=== PATIENT | female | born 1955 | race Caucasian/White ===

== ENCOUNTER 2017-03-01 11:21 | Day surgery (SDC) | payer OTHER ==
[~2017-03-01] VITALS: Ht 160 cm; Wt 130.0 kg
--- NOTE | 2017-03-01 08:10 | PCM.HPANE ---
Patient Data Surgeon Admitting Provider: Attending Provider:Shabbir Magaña MD Primary Care Physician:Akilah Orlando DO Other Provider:Ophelia Encarnacion Anesthesia Reason for Visit Post-Menopausal Bleeding Ht/WT & BMI Height (Feet): 5 Height (Inches): 3 Weight (Kilograms): 129.7 Body Mass Index 50.00 Allergies Coded Allergies: Penicillins (Verified Allergy, Unknown, 03/08/15) Past Anesthesia History Anesthesia History: Denies:: Abnormal Airway, Anesthesia Reactions (nausea after propofol, hard to rouse ), Difficult Intubation, Fam Anesthesia Reaction, Malignant Hyperthermia Diabetes History Hx Diabetes?: Yes (Hgb A1c- 5.7 last done 01/2016) Type of Diabetes: Type II Glycemic Control: Oral Medication MRSA MRSA: No Medications Hypertension Medication: No Home Meds Incl Beta Carlos: No Reported Medications Diclofenac Gel (Voltaren Gel)100 Gm Tube1 Applic TOPICAL 4xd PRN For Pain #1 TUBE 02/28/17 Levothyroxine (Synthroid)25 Mcg Slezcu37 Mcg PO DAILY Ref 0 02/28/17 Multivitamin (Multi Vitamin Daily)1 Each Tablet1 Each PO DAILY 30 Days Ref 0 02/28/17 Metformin 500 Mg [id number] Mg PO DAILY Ref 0 02/28/17 Discontinued Reported Medications Ca Cmb 1/Vit D3/B-6/FA/B12/Av (Vitamin D3-Aloe 1,000 Unit Tab)1 Each Tablet1 Each PO DAILY PRN in the winter 06/27/15 Levothyroxine (Synthroid)25 Mcg Fhfarz55 Mcg PO DAILY 30 Days Ref 0 03/08/15 Carisoprodol (Soma)350 Mg Konnmp042 Mg PO HS PRN For Pain 03/08/15 Multivitamin (Multivitamins)1 Each Capsule1 Each PO DAILY 03/08/15 Liothyronine Sodium (Cytomel)25 Mcg Qlvjxs45 Mcg PO DAILY 03/08/15 Discontinued Scripts Alprazolam 0.25 Mg Tablet0.25 Mg PO TID PRN For Anxiety #14 TABLET Ref 0 Prov:Eliceo Monaco MD 07/05/15 Budesonide (Pulmicort Flexhaler)60 Puff/Inh Inhaler1 Puff INH BID #1 INHALER Ref 0 Prov:Eliceo Monaco MD 07/05/15 Prednisone (PredniSONE)10 Mg Owypwh67 Mg PO DAILY #30 TABLET Ref 0 60 mg ax 1 day, 40 mg x 2 days, 30 mg x 2 days, 20 mg x 2 days, 10 mg x 2 days, then stop Prov:Eliceo Monaco MD 07/05/15 Epinephrine 0.3 Mg/0.3 Ml Auto.injct0.3 Mg IJ DIRECTED PRN For Anaphyllaxis # 1 PENINJ Ref 2 Prov:Eliceo Monaco MD 07/05/15 Amlodipine 5 Mg Vpiast94 Mg PO DAILY #14 TABLET Prov:Eliceo Monaco MD 07/05/15 History History of ENT Problems?: No HEENT History: Denies:: Abnormal Airway Cataracts Difficult Intubation Dysphagia Glaucoma Hearing Problem Sinus Problem TMJ Denture Type: None Teeth Condition: Within Normal Limits Hx of Heart Problems?: No Cardiovascular History: Positive for:: Irregular Heartbeat (PVCs, rapid heart rate while on steroids ) Denies:: AICD Cardiac Surgery Chest Pain Congestive Heart Failure Coronary Artery Disease Edema Heart Murmur Hypertension Pacemaker Peripheral Vascular Rheumatic Fever Thrombophlebitis Valvular Heart Disease Hx of Respiratory Problem?: Yes Respiratory History: Positive for:: Dyspnea (hx of reactive airway, bronchospasm x 2 in 2015, hospitalized) Denies:: Asthma COPD Chest Surgery Emphysema Hemoptysis Oxygen Administration Pneumonia Pulmonary Embolism Tuberculosis Use of C-PAP Machine Hx Neurologic Problems?: Yes Neurological History: Positive for:: Dizziness Denies:: Alzheimer's Disease CVA Dementia Headaches Multiple Sclerosis Parkinson's Disease Seizures Other Neurological Pertinent: traumatic brain injury 2002- no resulting outcomes Hx of GI Problems?: No Gastrointestinal History: Denies:: Cirrhosis Diverticulitis Gall Bladder Disease Gastroesphageal Reflux Gastrointestinal Bleeding Heartburn Hepatitis Hiatal Hernia Liver Disease Rectal Bleeding Hx of Problems?: No Genitourinary History: Denies:: HX of Hemodialysis Kidney Stones Urinary Tract Infection HX of Peritoneal Dialysis: No Female Hx: Denies:: Currently Endometriosis Pelvic Inflammatory Problems with Breasts? Skin History: Denies:: History Skin Disorders? Pressure Ulcers Hx Musculoskeletal Problems?: Yes Musculoskeletal History: Positive for:: Musculoskeletal Trauma (sore hips, knees) Denies:: Back Injury Fibromyalgia Joint Replacement Osteoarthritis Rheumatoid Arthritis Systemic Lupus Hx of Psycho/Social Problems?: Yes Psycho Social History: Positive for:: Hx Depression Denies:: Anxiety Bipolar Disorder Suicide Attempt Hx Surgeries?: Yes ( x3 AND RUPTURED CORNUAL ) Hx Any Other Health Problems?: Yes Other History: Positive for:: Thyroid Disease (hypothyroidism) Denies:: Cancer Hospitalization History Blood Transfusions: Positive for:: Accept Blood Products? Denies:: Blood Transfuse Reaction Blood Transfusions (possible when treated for rupt pg) Hx Diabetes: Yes (Hgb A1c- 5.7 last done 01/2016) Hx Alcohol Use: YesAlcoholic Drinks Per Day: two glasses monthlyHx Substance Use: No Smoking Status: Never Smoker Have You Smoked inLast 12 mo: No Stop/Bang Treated for Sleep Apnea?: No Do You Have a CPAP Machine?: No S-Snoring: Do You Snore Loudly: No T-Tired: feel tired, fatigued: No O-Obsered: Observed not breath: No P-Blood Pressure: treated: No B- Body Mass Index > 35 kg/m2: Yes A- Age over 50: Yes N- Neck Large Circumference: Yes G- Gender Male: No JEWEL Total Score: 3 JEWEL Risk Assessment: High Risk, =/>3 Yes JEWEL Category 2: Yes Risk Assessment Category Category 1A: Patient has history of documented sleep apnea, and HAS NOT received any narcotic, sedative or anesthesia administration during this stay. Category 1B: Patient has history of documented sleep apnea, and HAS received any narcotic , sedative or anesthesia administration during this stay Category 2: Patient has SUSPECTED Obstructive Sleep Apnea, and HAS received any narcotic , sedative or anesthesia administration during this stay. Category 3: Patient has SUSPECTED Obstructive Sleep Apnea and HAS NOT received narcotic, sedative or anesthesia administration during this stay. Category 4: Outpatient in Procedural Areas with known sleep apnea or who screen positive for High Risk via the STOP/BANG questionnaire. Exam Exam General Appearance: Alert, Oriented X3, Cooperative, No Acute Distress HEENT/AIRWAY: MP 2 Lungs: Clear to Auscultation, Normal Air Movement Heart: Exam Unremarkable, Regular Rate/Rhythm, No Murmurs/Rubs/Gallops Plan Impression Patient chart reviewed, patient interviewed and anesthestic plan with risks, benefits, and alternatives discussed, and informed consent obtained. ASA Physical Status: ASA3 Severe Disease (morbid obesity, DM) Anesthetic Plan: GA Bene/Risks/Altern/Consents: Yes HP Complete Prior to Induction: Yes Anthony Gallardo MD Mar 01, 2017 08:10
[~2017-03-01 11:21] MED LIST: DICL100G8 TOPICAL; Dexamethasone 4 mg/mL Inj IVPUSH PRN; EPHEDrine Sulfate 50 mg/mL Inj IVPUSH PRN; HYDROmorphone 1 mg/mL Inj IVPUSH PRN; LEVO25TA2 PO; Lactated Ringer's 1,000 ML IV SCH; Lactated Ringer's 500 ML IV PRN; METF500T4 PO; MULT-1018 PO; MetoCLOpramide 5 mg/mL 2 mL Inj IVPUSH PRN; Ondansetron 2 mg/mL 2 mL Inj IVPUSH PRN; Phenylephrine 10,000 mCg/mL Inj IVPUSH PRN; fentaNYL-PF 50 mCg/mL 2 mL Inj IVPUSH PRN
[2017-03-01] MEDS ORDERED: Remifentanil 1 mg/3 mL Inj ONE (11:22)
[2017-03-01] MEDS ORDERED: Propofol 10,000 mCg/mL 20 mL Inj ONE (11:22)
[2017-03-01] MEDS ORDERED: Ondansetron 2 mg/mL 2 mL Inj ONE (11:22)
[2017-03-01] MEDS ORDERED: Ketamine 10 mg/mL 20 mL Inj ONE (11:22)
[2017-03-01] MEDS ORDERED: Rocuronium 10 mg/mL 5 mL Inj ONE (11:22)
[2017-03-01 11:56] VITALS: BP 172/88; PULSE 64; RESP 18; O2SAT 96
[2017-03-01] MEDS ORDERED: Lactated Ringer's 1,000 ML IV ONE (14:22)
[2017-03-01 14:45] VITALS: BP 166/88; PULSE 81; RESP 16; O2SAT 96
[2017-03-01] MEDS ORDERED: oxyCODONE-Acetamin 5-325 mg Tablet PO PRN (14:55)
[2017-03-01] MEDS ORDERED: MetoCLOpramide 5 mg/mL 2 mL Inj IVPUSH PRN (14:55)
[2017-03-01] MEDS ORDERED: Ondansetron 2 mg/mL 2 mL Inj IVPUSH PRN (14:55)
[2017-03-01] MEDS ORDERED: diphenhydrAMINE 25 mg Capsule PO PRN (14:55)
[2017-03-01] MEDS ORDERED: HYDROmorphone 1 mg/mL Inj IVPUSH PRN (14:55)
--- NOTE | 2017-03-01 14:58 | PCM.DIGYN ---
Surgical Discharge Instruction Dates of Hospitalization Date of Hospital Admission 03/01/2017 Providers Admitting Physician: Primary Care Physician: Akilah Orlando DO Attending Physician: Shabbir Magaña MD Diagnosis at Time of Discharge Diagnosis at time of discharge Postmenopausal bleeding. Endometrial mass Problems: Diet Discharge Diet: No restrictions Activity Discharge Activity-General: Try not to overdue, Be up and about, Other ( nothing per vagina for 2 weeks) Dressing and Incisional Care Hygiene: NO bathtub, hot tub or whirlpool (unitl vaginal bleeding and discharge resolve.) Follow Up Plan Follow-up appointment: Weeks (2) Call your provider for: Fever, Chills, Shortness of breath, Heavy vaginal bleeding, Increasing pain Shabbir Magaña MD Mar 01, 2017 14:58
[2017-03-01 15:30] VITALS: BP 114/72; PULSE 68; RESP 14; O2SAT 98
--- NOTE | 2017-03-02 00:26 | OP ---
[address] [address] OPERATIVE REPORT PATIENT: ALEXANDER OTOOLE : 1955 MR#: [id number] ADMIT: 03/01/2017 JOB ID: [id number] DATE OF SURGERY: PREOPERATIVE DIAGNOSIS(ES): 1. Postmenopausal bleeding. 2. Endometrial polyp. POSTOPERATIVE DIAGNOSIS(ES): 1. Postmenopausal bleeding. 2. Endometrial polyp. PROCEDURE PERFORMED: Diagnostic hysteroscopy with MyoSure resection of endometrial polyp/mass. SURGEON: Shabbir Magaña M.D. ANESTHESIA: MAC. ESTIMATED BLOOD LOSS: 10 mL. COMPLICATIONS: None. PATHOLOGY SENT: MyoSure endometrial curettings. FINDINGS AT TIME OF SURGERY: Normal-appearing vagina and cervix. Hysteroscopic findings showing a topographic endometrial mass attached to the posterior aspect of the uterine wall. There appeared to be some calcifications and large vessels within this mass. The cornual regions were normal in appearance and atrophic. PROCEDURE: The patient was taken to the operating room where her general MAC anesthesia was obtained without difficulty. She was placed in the lithotomy position in the [facility] and prepared and draped in normal sterile fashion. A bivalve speculum was inserted into the patient's vagina and the cervix was identified, grasped with single-tooth tenaculum and dilated using Hegar cervical dilators to a #8. A MyoSure hysteroscope was then inserted. The above noted findings were appreciated. The MyoSure device was then inserted and the endometrial mass was resected. The myosure device was removed and sharp curette was used to palpate the posterior wall of the uterus, was felt to be gritty. All instruments were then removed from the patient's vagina. Pressure was applied to the uterus and cervix for hemostasis. Good hemostasis was assured. All lap, instrument, and needle counts correct x2 at the end of the procedure. The patient was taken to the recovery room in good condition. [facility]OSPITALHumza
--- NOTE | 2017-03-04 14:42 | PATH ---
SURGICAL PATHOLOGY Attending Physician:Shabbir Magaña, CASE STATUS: Signed Out PATIENT NAME: ALEXANDER OTOOLE PID: [id number] : 1955 DATE COLLECTED:03/01/2017 00:00 SPECIMEN: Endometrium, Curettage CLINICAL HISTORY: POSTMENOPAUSAL BLEEDING 1). MYOSURE ENDOMETRIAL CURETTINGS FINAL DIAGNOSIS: 1.ENDOMETRIAL CURETTINGS: ENDOMETRIAL ADENOCARCINOMA, ENDOMETRIOID TYPE, FIGO GRADE 1 WITH SOME FRAGMENTS SUSPICIOUS FOR POSSIBLE MYOMETRIAL INVASION. [id number] NOTE: As part of a routine quality improvement coordinator, Dr. Radu Carrera has also reviewed this case and agrees with the diagnosis. The results of this evaluation are telephoned to the office of Dr. Angelic Magaña at 1:20 pm on 03/04/17. GROSS DESCRIPTION: The specimen is received in one formalin filled container labeled with the patient's name, sublabeled "myosure endometrial curettings" and consists of multiple portions of light watts tissue which aggregate to 4.0 x 3.0 x 2.0 CM. Rim Fire Charger Operator sections are submitted in 6 cassettes. 03/02/2017 DAC MICRO DESCRIPTION: See diagnosis. ICD-9 CODES: CPT CODES: 1: 58856 Electronically Signed Out Mariusz Zaldivar MD [facility] [address], [place] [address] Technical component performed at [facility], [address] [place] [address] Ave[address], [place], [address]
--- NOTE | 2017-03-05 07:30 | PCM.ANEP1 ---
Post Anesthesia PACU Phase 1 Assessment Anesthetic Administered: GA Level of Alertness: Awake, talking VELAZQUEZ's with Equal Strength: Yes Pain: No Nausea or Vomiting: No CV Function & Hydration Stable: Yes Airway Device: Oralpharangeal Airway Oxygen Delivery: Simple Mask Lungs: Clear to Auscultation, Normal Air Movement Dermatome Level: Full Sensation PACU Phase 2 Assessment Complications: No Follow up Care: No Patient Instructions Provided: N/A Anthony Gallardo MD Mar 05, 2017 07:29
== END 2017-03-01 23:59 | disposition home or self-care (01) ==
LOC: SAS 11:21
PROVIDERS: ATTEND Obstetrics & Gynecology
DX: C54.1 Malignant neoplasm of endometrium (principal); N95.0 Postmenopausal bleeding; I10 Essential (primary) hypertension; E11.9 Type 2 diabetes mellitus without complications; F32.9 Major depressive disorder, single episode, unspecified; E03.9 Hypothyroidism, unspecified; R06.00 Dyspnea, unspecified; E66.01 Morbid (severe) obesity due to excess calories; Z68.43 Body mass index [BMI] 50.0-59.9, adult; Z79.84 Long term (current) use of oral hypoglycemic drugs
CPT/HCPCS: 58563; J1885; J2250; J2405; J7120